=== PATIENT | male | born 1950 | race African-American/Black ===

== ENCOUNTER 2025-09-18 14:38 | Emergency (ER) | payer OTHER ==
[2025-09-18 16:22] LABS: Absolute Lymphocytes (CBC) 2.4 K/uL (0.7-4.9); Hematocrit 42.1 % (39.6-49.0); Hemoglobin 14.2 g/dL (13.6-17.9); MCH 31.8 pg (27.0-35.0); MCHC 33.7 g/dL (32.0-36.0); MCV 94.4 fL (80-100); MPV 8.5 fL (7.6-11.3); Nucleated RBC Absolute Count 0.0 (0-0); Nucleated Red Blood Cells % 0.1 % (0-0); RBC Red Blood Cell Count 4.46 M/uL (4.33-5.43); White Blood Count 5.40 thou/uL (4.3-10.9)
[2025-09-18] MEDS ORDERED: METHOCARBAMOL 1,000 MG/10 ML VIAL ONE (16:30)
[2025-09-18] MEDS ORDERED: FENTANYL CITR 100 MCG/2 ML ONE ×2 (16:31→18:25)
[2025-09-18] MEDS ORDERED: NA CHLORIDE 0.9% 100 ML ONE (16:31)
[2025-09-18 16:40] LABS: ALT/SGPT 26 U/L (16-61); AST/SGOT 14 U/L (15-37); Albumin 3.7 g/dL (3.4-5.0); Albumin/Globulin Ratio 0.8 (1.1-1.8); Alkaline Phosphatase 112 U/L (45-117); Anion Gap 7.9 mEq/L (5.0-15.0); BUN Blood Urea Nitrogen 20 mg/dL (7-18); Globulin 4.5 g/dL (2.3-3.5); Glucose Level 82 mg/dL (74-106); Magnesium 2.3 mg/dL (1.6-2.4); Potassium 3.9 mEq/L (3.5-5.1); Troponin High Sensitivity 7.0 pg/mL (<58.9)
[2025-09-18 16:42] LABS: Bilirubin Indirect, Calculated 0.1 mg/dL (0.2-0.8)
[2025-09-18] MEDS ORDERED: KETOROLAC 30 MG/ML INJ ONE (17:42)
--- NOTE | 2025-09-18 17:49 | RAD REPORT ---
EXAMINATION: Head C Spine Mpr Wo Con CLINICAL INDICATION: Male, 75 years old. right side neck pain;Headache TECHNIQUE: Axial CT images from the skull base to the vertex without intravenous contrast. Axial CT i mages through the cervical spine were obtained without intravenous contrast. Sagittal and coronal reformatted images were created from the data set. Coronal and sagittal reformatted images were creat ed from the data set. One or more of the following dose reduction techniques were used: Automated exposure control, adjustment of the mA and/or kV according to patient size, and/or iterative reconstr uction. Unless otherwise specified, incidental findings do not require dedicated imaging follow-up. [id number]. COMPARISON: No prior exams FINDINGS: Head: INTRACRANIAL: No acute intracranial hemorrhage. No acute large vascular territory infarct. No hydro cephalus. No mass effect or midline shift. Mild to moderate chronic small vessel ischemic changes. Mild cerebral atrophy. Tiny remote appearing left thalamic lacunar infarct. VASCULATURE: No visualized abnormalities in the arteries or dural venous sinuses. SCALP/SKULL: No calvarial fracture identified. No acute soft tissue abnormality. SINUSES: The visualized paranasal sinuses are mostly clear. No significant mastoid fluid. Cervical spine: ALIGNMENT: The cervical spine has normal alignment without scoliosis or spondylolisthesis. BONE: Vertebral body heights are maintained. No aggressive osseous lesions. DEGENERATIVE: Multilevel cervical spondylosis with evidence of bilateral neural foraminal narrowing. No high grade central spinal stenosis. Neural foraminal narrowing bilaterally is most pronounced at the C5-6, C6-7 levels. SOFT TISSUE: 3.9 cm left thyroid mass. IMPRESSION: No acute intracranial abnormality. No acute fracture or traumatic malalignment of the cervical spine. Nearly 4 cm left thyroid mass. Recommend nonemergent thyroid ultrasound.
[2025-09-18] MEDS ORDERED: DIAZEPAM 10 MG/2 ML INJ SYRINGE ONE (18:25)
--- NOTE | 2025-09-18 18:46 | EDPHYS ---
Physician Documentation [facility] Name: Michael Cade Age: 75 yrs Sex: Male : 1950 Arrival Date: 09/18/2025 Time: 14:38 Bed 14 Private MD: ED Physician William Del Rio HPI: 09/18 15:20 This 75 yrs old Black Male presents to ER via Ambulatory with complaints of neck pain. cp 15:20 The patient or guardian complains of pain, that is acute. The symptoms are located cp right side of neck. 15:20 Onset: The symptoms/episode began/occurred yesterday, and became worse today. Context: cp The neck injury/problem resulted from from unknown cause. 15:20 Associated signs and symptoms: Pertinent positives: right side headache, Pertinent cp negatives: fever, numbness, vomiting, weakness. 15:20 Severity of symptoms: in the emergency department the symptoms are unchanged, despite cp home interventions. Historical: - Allergies: 15:11 No Known Allergies; ph - PMHx: 15:11 Hypertensive disorder; Diabetes mellitus; ph - Immunization history:: Adult Immunizations up to date. - Infectious Disease History:: Denies. - Social history:: Smoking status: Patient denies any tobacco usage or history of. ROS: 15:25 Constitutional: Negative for body aches, chills, fever, poor PO intake, cp 15:25 Eyes: Negative for injury, pain, redness, and discharge, cp 15:25 ENT: Negative for drainage from ear(s), ear pain, sore throat, difficulty swallowing, difficulty handling secretions, 15:25 Neck: Positive for pain with movement, pain at rest, stiffness, tenderness, of the right side of neck, Negative for injury or acute deformity, 15:25 Cardiovascular: Negative for chest pain, edema, palpitations, 15:25 Respiratory: Negative for cough, shortness of breath, wheezing, 15:25 Abdomen/GI: Negative for abdominal pain, vomiting, diarrhea, constipation, 15:25 Back: Negative for pain at rest, pain with movement, 15:25 Skin: Negative for cellulitis, rash, 15:25 Neuro: Positive for headache, Negative for altered mental status, dizziness, numbness, speech changes, weakness, 15:25 All other systems are negative, Exam: 15:30 Constitutional: The patient appears in no acute distress, alert, awake, cp non-diaphoretic, non-toxic, well developed, well nourished, uncomfortable, 15:30 Head/Face: Normocephalic, atraumatic. cp 15:30 Eyes: Periorbital structures: appear normal, Pupils: equal, round, and reactive to light and accomodation, Extraocular movements: intact throughout, Conjunctiva: normal, no exudate, no injection, Sclera: no appreciated abnormality, Lids and lashes: appear normal, bilaterally, 15:30 ENT: External ear(s): are unremarkable, Nose: is normal, Mouth: Lips: moist, Oral mucosa: moist, Posterior pharynx: Airway: no evidence of obstruction, patent, 15:30 Neck: C-spine: vertebral tenderness, is not appreciated, crepitus, is not appreciated, ROM/movement: pain, that is moderate, with rotation to the right, Meningeal signs: are not present, 15:30 Chest/axilla: Inspection: normal, Palpation: is normal, no crepitus, no tenderness, 15:30 Cardiovascular: Rate: normal, Rhythm: regular, Edema: is not appreciated, JVD: is not appreciated, 15:30 Respiratory: the patient does not display signs of respiratory distress, Respirations: normal, no use of accessory muscles, no retractions, labored breathing, is not present, Breath sounds: are clear throughout, no decreased breath sounds, no stridor, no wheezing, 15:30 Abdomen/GI: Inspection: abdomen appears normal, Palpation: abdomen is soft and non-tender, in all quadrants, 15:30 Back: pain, is absent, ROM is normal, 15:30 Skin: cellulitis, is not appreciated, no rash present. 15:30 Neuro: Orientation: to person, place \T\ time. Mentation: is normal, Cerebellar function: is grossly normal, Motor: moves all fours, strength is normal, Sensation: is normal, 16:03 ECG was reviewed by the Attending Physician. cp Vital Signs: 15:10 BP 176 / 92; Pulse 66; Resp 16; Temp 97.9; Pulse Ox 99% ; ph 17:14 BP 153 / 79; Pulse 48; Resp 16; Pulse Ox 100% on R/A; jb4 18:00 BP 160 / 88; Pulse 46; Resp 16; Pulse Ox 100% on R/A; jb4 MDM: 15:00 Medical Screening Exam initiated cp 18:44 Data reviewed: vital signs, nurses notes, lab test result(s), EKG, radiologic studies, cp CT scan. 18:44 Differential diagnosis: C-Spine Fracture Cervical Disc Herniation Cervical Raiculopathy cp Cervical Spondylosis cervical strain, Spondylolisthesis Spondylosis torticollis. I considered the following discharge prescriptions or medication management in the emergency department Medications were administered in the Emergency Department. See MAR. Independent interpretation of the following test(s) in the Emergency Department EKG: See my EKG interpretation above. Test considered but Not performed: MRI: head and neck. CT: head/neck angio. Care significantly affected by the following chronic conditions: Diabetes, Hypertension. Counseling: I had a detailed discussion with the patient and/or guardian regarding the historical points, exam findings, and any diagnostic results supporting the discharge/admit diagnosis, lab results, radiology results, the need for outpatient follow up, a family practitioner, to return to the emergency department if symptoms worsen or persist or if there are any questions or concerns that arise at home. Response to treatment: the patient's symptoms have mildly improved after treatment, and as a result, I will discharge patient. 09/18 15:20 Order name: Basic Metabolic Panel; Complete Time: 16:44 cp 09/18 15:20 Order name: CBC with Diff; Complete Time: 16:44 cp 09/18 15:20 Order name: LFT's; Complete Time: 16:44 cp 09/18 15:20 Order name: Magnesium; Complete Time: 16:44 cp 09/18 15:20 Order name: Troponin HS; Complete Time: 16:44 cp 09/18 16:14 Order name: Glucose, Ancillary Testing; Complete Time: 16:18 EDMS 09/18 15:20 Order name: CT Head C Spine; Complete Time: 17:51 cp 09/18 17:52 Interpretation: Reviewed report. 09/18 15:20 Order name: EKG; Complete Time: 15:20 cp 09/18 15:20 Order name: Cardiac monitoring; Complete Time: 16:04 cp 09/18 15:20 Order name: EKG - Nurse/Tech; Complete Time: 16:04 cp 09/18 15:20 Order name: IV Saline Lock; Complete Time: 16:04 09/18 15:20 Order name: Labs collected and sent; Complete Time: 16:04 cp 09/18 15:20 Order name: O2 Per Protocol; Complete Time: 15:47 cp 09/18 15:20 Order name: O2 Sat Monitoring; Complete Time: 15:47 cp 09/18 15:20 Order name: Accucheck Blood Glucose; Complete Time: 16:04 cp EC:03 Rate is 51 beats/min. Rhythm is regular. TX interval is normal. QRS interval is normal. cp QT interval is normal. T waves are Inverted in lead aVR. Interpreted by me. Reviewed by me. Administered Medications: 16:44 Drug: Methocarbamol IVPB 500 mg IVPB once over 1 hrs; (mix in NS 100 mL) Route: IVPB; jb4 Infused Over: 1 hrs; Site: right antecubital; 17:44 Follow up: Response: No adverse reaction; Marked relief of symptoms; Pain is decreased; jb4 IV Status: Completed infusion; IV Intake: 100ml 16:44 Drug: fentaNYL (PF) IVP 25 mcg IVP once Route: IVP; Site: right antecubital; jb4 17:59 Follow up: Response: No adverse reaction; Marked relief of symptoms; Pain is decreased jb4 17:59 Drug: Ketorolac IVP 15 mg IVP once Route: IVP; Site: right antecubital; jb4 18:51 Follow up: Response: No adverse reaction; No change in condition; Pain is decreased jb4 18:30 Drug: Diazepam IVP 5 mg IVP once Route: IVP; Site: right antecubital; jb4 18:52 Follow up: Response: No adverse reaction; Marked relief of symptoms; Pain is decreased jb4 18:30 Drug: fentaNYL (PF) IVP 25 mcg IVP once Route: IVP; Site: right antecubital; jb4 18:52 Follow up: Response: No adverse reaction; Marked relief of symptoms; Pain is decreased jb4 Disposition: 17:09 I was immediately available on-site in the Emergency Department for consultation in the ms3 care of the patient. Disposition Summary: 09/18/25 18:45 Discharge Ordered Notes: Location: Home cp Problem: new cp Symptoms: have improved cp Condition: Stable cp Diagnosis - Cervicalgia cp - Headache cp Followup: cp - With: Private Physician - When: 2 - 3 days - Reason: Recheck today's complaints Discharge Instructions: - Discharge Summary Sheet cp - General Headache Without Cause cp - Musculoskeletal Pain cp - Heat Therapy cp - Neck Exercises cp Forms: - Medication Reconciliation Form cp - Antibiotic Education cp - Prescription Opioid Use cp - Patient Portal Instructions cp - Leadership Thank You Letter cp Prescriptions: - diclofenac sodium 1 % Topical gel - apply 1 gram TOPICAL route 4 times per day apply to painful area of neck; 60 cp gram tube; Refills: 0, Product Selection Permitted - methocarbamol 750 mg Oral tablet - take 1 tablet ORAL route 3 times per day; 30 tablet; Refills: 0, Product cp Selection Permitted Signatures: Dispatcher [employer] EDHamida Saunders RN RN ph Brock Frederick, PA-C PA-C Rajiv Hill RN RN jb4 William Del Rio DO DO ms3 Corrections: (The following items were deleted from the chart) 17:25 15:21 Head Angio+CT.RAD.BRZ ordered. EDMS EDMS 17:25 15:21 Neck Angio+CT.RAD.BRZ ordered. EDMS EDMS
--- NOTE | 2025-09-18 18:46 | ER ---
Nurse's Notes [facility] Name: Michael aCde Age: 75 yrs Sex: Male : 1950 Arrival Date: 09/18/2025 Time: 14:38 Bed 14 Private MD: Diagnosis: Cervicalgia;Headache Presentation: 09/18 15:10 Chief complaint: Patient states: R RADICULOPATHY PATTERN PAIN SINCE YESTERDAY. ph Coronavirus screen: At this time, the client does not indicate any symptoms associated with coronavirus-19. Ebola Screen: No symptoms or risks identified at this time. Initial Sepsis Screen: Does the patient meet any 2 criteria? No. Patient's initial sepsis screen is negative. Does the patient have a suspected source of infection? No. Patient's initial sepsis screen is negative. Risk Assessment: Do you want to hurt yourself or someone else? Patient reports no desire to harm self or others. Onset of symptoms is unknown. 15:10 Method Of Arrival: Ambulatory ph 15:10 Acuity: JAROD 3 ph Triage Assessment: 15:11 General: Appears in no apparent distress. uncomfortable, Behavior is calm, cooperative, ph appropriate for age. Pain: Complains of pain in back of neck. EENT: No deficits noted. Neuro: No deficits noted. Cardiovascular: No deficits noted. Respiratory: No deficits noted. GI: No signs and/or symptoms were reported involving the gastrointestinal system. : No signs and/or symptoms were reported regarding the genitourinary system. Derm: No deficits noted. Musculoskeletal: No deficits noted. Historical: - Allergies: 15:11 No Known Allergies; ph - PMHx: 15:11 Hypertensive disorder; Diabetes mellitus; ph - Immunization history:: Adult Immunizations up to date. - Infectious Disease History:: Denies. - Social history:: Smoking status: Patient denies any tobacco usage or history of. Screenin:07 [facility] ED Fall Risk Assessment (Adult) History of falling in the last 3 months, jb4 including since admission No falls in past 3 months (0 pts) Confusion or Disorientation No (0 pts) Intoxicated or Sedated No (0 pts) Impaired Gait No (0 pts) Mobility Assist Device Used No (0 pt) Altered Elimination No (0 pt) Score/Fall Risk Level 0 - 2 = Low Risk Oriented to surroundings, Maintained a safe environment. Abuse screen: Denies threats or abuse. Nutritional screening: No deficits noted. Tuberculosis screening: No symptoms or risk factors identified. Assessment: 16:07 General: Appears in no apparent distress. uncomfortable, Behavior is calm, cooperative, jb4 appropriate for age. Pain: Complains of pain in base of the skull Pain radiates to right parietal area Pain currently is 7 out of 10 on a pain scale. Neuro: Level of Consciousness is awake, alert, obeys commands, Oriented to person, place, time, situation. Cardiovascular: Patient's skin is warm and dry. Respiratory: Airway is patent Respiratory effort is even, unlabored, Respiratory pattern is regular, symmetrical. Derm: Skin is intact, Skin is pink, warm \T\ dry. Musculoskeletal: Circulation, motion, and sensation intact. Range of motion: intact in all extremities. 17:14 Reassessment: Patient appears in no apparent distress at this time. Patient and/or jb4 family updated on plan of care and expected duration. Pain level reassessed. Patient is alert, oriented x 3, equal unlabored respirations, skin warm/dry/pink. 17:58 Reassessment: Patient appears in no apparent distress at this time. Patient and/or jb4 family updated on plan of care and expected duration. Pain level reassessed. Patient is alert, oriented x 3, equal unlabored respirations, skin warm/dry/pink. Patient states feeling better. Patient states symptoms have improved. 19:30 General: Patient d/c by CAIN Skinner. Instruction and iv d/c by CAIN Skinner as well. No kd4 information known or care plan known by this RN on this patient.. Vital Signs: 15:10 BP 176 / 92; Pulse 66; Resp 16; Temp 97.9; Pulse Ox 99% ; ph 17:14 BP 153 / 79; Pulse 48; Resp 16; Pulse Ox 100% on R/A; jb4 18:00 BP 160 / 88; Pulse 46; Resp 16; Pulse Ox 100% on R/A; jb4 ED Course: 14:45 Patient arrived in ED. al6 14:52 Brock Frederick [facility] cp 14:52 William Del Rio DO is Attending Physician. cp 15:11 Triage completed. ph 15:11 Arm band placed on. ph 15:23 Radiology exam delayed due to lab results not completed at this time. (BUN/Creatinine) jc4 IV insertion attempt and/or patient not having appropriate IV at this time. 15:56 Radiology exam delayed due to lab results not completed at this time. (BUN/Creatinine) nj IV insertion attempt and/or patient not having appropriate IV at this time. 16:04 Initial lab(s) drawn, by ED staff, sent to lab. Inserted saline lock: 20 gauge in right ts3 antecubital area, using aseptic technique. Blood collected. Flushed with 10 mL NS. 16:05 EKG done, by lead quality control technician. reviewed by Brock Frederick PA-C. ts3 16:07 Patient has correct armband on for positive identification. Bed in low position. Call jb4 light in reach. Side rails up X 1. Provided Education on: plan of care.. 16:07 No provider procedures requiring assistance completed. jb4 16:21 Rajiv Pham, RN is Primary Nurse. jb4 17:33 CT Head C Spine In Process Unspecified. EDMS 19:30 IV discontinued. kd4 Administered Medications: 16:44 Drug: Methocarbamol IVPB 500 mg IVPB once over 1 hrs; (mix in NS 100 mL) Route: IVPB; jb4 Infused Over: 1 hrs; Site: right antecubital; 17:44 Follow up: Response: No adverse reaction; Marked relief of symptoms; Pain is decreased; jb4 IV Status: Completed infusion; IV Intake: 100ml 16:44 Drug: fentaNYL (PF) IVP 25 mcg IVP once Route: IVP; Site: right antecubital; jb4 17:59 Follow up: Response: No adverse reaction; Marked relief of symptoms; Pain is decreased jb4 17:59 Drug: Ketorolac IVP 15 mg IVP once Route: IVP; Site: right antecubital; jb4 18:51 Follow up: Response: No adverse reaction; No change in condition; Pain is decreased jb4 18:30 Drug: Diazepam IVP 5 mg IVP once Route: IVP; Site: right antecubital; jb4 18:52 Follow up: Response: No adverse reaction; Marked relief of symptoms; Pain is decreased jb4 18:30 Drug: fentaNYL (PF) IVP 25 mcg IVP once Route: IVP; Site: right antecubital; jb4 18:52 Follow up: Response: No adverse reaction; Marked relief of symptoms; Pain is decreased jb4 Medication: 16:07 VIS not applicable for this client. jb4 Intake: 17:44 IV: 100ml; Total: 100ml. jb4 Outcome: 18:45 Discharge ordered by . raa 19:29 Discharged to home ambulatory, kd4 19:29 Condition: stable 19:29 Discharge instructions given to patient, 19:32 Patient left the ED. kd4 Signatures: Dispatcher [employer] EDHamida Saunders RN RN diego Frederick, Brock, PA-C PA-C Rajiv Hill RN RN jb4 Rock Bolanos Karim, RN RN kd4 Stephane Cabello4 Jen Albert Taisha 3
[2025-09-18 19:36] VITALS: TEMP 97.9
[2025-09-18 19:37] VITALS: O2SAT 100
[2025-09-18 19:38] VITALS: BP 160/88
== END 2025-09-18 19:32 | disposition home or self-care (01) ==
LOC: ER 14:38
DX: M54.2 Cervicalgia (principal); R51.9 Headache, unspecified; E11.9 Type 2 diabetes mellitus without complications; I10 Essential (primary) hypertension
CPT/HCPCS: 96365; 93005; 85025; 80048; 36415; 83735; 82947; 80076; 84484; 70450; 72125; 96375; 99284; J1885; J3360; J3010 ×2; J2800